=== PATIENT | male | born 1985 | race African-American/Black ===

== ENCOUNTER 2024-04-17 17:41 | Inpatient (IN) | payer OTHER ==
[2024-04-17 18:13] VITALS: BMI 22.8
[2024-04-17] MEDS ORDERED: ONDANSETRON *ODT* 4 MG TABLET SL PRN (18:42)
[2024-04-17] MEDS ORDERED: POLYETHYLENE GLYCOL (HEALTHYLAX) 3350 17 GM PACKET PO PRN (18:42)
[2024-04-17] MEDS ORDERED: LOPERAMIDE HCL 2 MG CAPSULE PO PRN (18:42)
[2024-04-17] MEDS ORDERED: IBUPROFEN 400 MG TABLET (FP) PO PRN (18:42)
[2024-04-17] MEDS ORDERED: DICYCLOMINE HCL 10 MG CAPSULE PO PRN (18:42)
[2024-04-17] MEDS ORDERED: MAG HYDROX/AL HYDROX/SIMETH 30 ML UNIT-DOSE CUP PO PRN (18:42)
[2024-04-17] MEDS ORDERED: BISMUTH SUBSALICYLATE 524 MG/30 ML PO PRN (18:42)
[2024-04-17] MEDS ORDERED: NALOXONE (NARCAN) HCL 4 MG/0.1 ML SPRAY NS PRN (18:42)
[2024-04-17] MEDS ORDERED: guaiFENesin 600 MG TABLET.ER (FP) PO PRN (18:42)
[2024-04-17] MEDS ORDERED: BENZONATATE 200 MG CAPSULE PO PRN (18:42)
[2024-04-17] MEDS ORDERED: MELATONIN 5 MG TABLETS PO SCH (22:00)
[2024-04-17] MEDS: hydrOXYzine PAMOATE 25 MG CAPSULE (FP) PO PRN (22:36)
[2024-04-17] MEDS: MELATONIN 5 MG TABLETS PO SCH (22:36)
[2024-04-17] MEDS: METHOCARBAMOL 500 MG TABLET PO PRN (22:36)
[2024-04-17] MEDS: THIAMINE 100 MG TABLET PO SCH (22:36)
[2024-04-18] MEDS ORDERED: chlordiazePOXIDE HCL 25 MG CAPSULE PO PRN (09:36)
[2024-04-18] MEDS: PRENATAL VITAMINS W/ FOLIC ACID TABLET (FP) PO SCH (10:14)
[2024-04-18] MEDS: chlordiazePOXIDE HCL 25 MG CAPSULE PO SCH (10:43)
[2024-04-18 12:53] LABS: CHLORIDE 106 mmol/L (98-107); SODIUM 141 mmol/L (136-145)
[2024-04-18 12:54] LABS: HEMATOCRIT 43.6 % (35.4-49); HEMOGLOBIN 14.2 GM/dL (11.7-16.9); MCH 31.7 pg (25.7-33.7); MCHC 32.4 g/dl (32.0-35.9); MEAN CELL VOLUME 97.8 fl (80-96); MEAN PLT VOLUME 7.4 fl (7.5-11.1); PLATELET COUNT 322 10^3/uL (134-434); RBC 4.46 M/mm3 (4.00-5.60); RDW 13.4 % (11.9-15.9); WHITE BLOOD COUNT 6.4 K/mm3 (4.0-10.0)
[2024-04-18 12:57] LABS: CALCIUM 9.1 mg/dL (8.5-10.1)
[2024-04-18 12:58] LABS: ALBUMIN 3.2 g/dl (3.4-5.0); ANION GAP 5 mmol/L (4-13); BLOOD UREA NITROGEN 13.3 mg/dL (7-18); CO2 30 mmol/L (21-32); GLUCOSE,RANDOM 89 mg/dL (74-106)
[2024-04-18 13:01] LABS: SGOT/AST 14 U/L (15-37); SGPT/ALT 17 U/L (13-61)
[2024-04-18 13:02] LABS: BILIRUBIN,TOTAL 0.5 mg/dL (0.2-1); CREATININE 0.7 mg/dL (0.55-1.3); TOT PROT 6.3 g/dl (6.4-8.2)
[2024-04-18 13:04] LABS: ALK PHOS 55 U/L (45-117)
[2024-04-19] MEDS: NICOTINE POLACRILEX 2 MG GUM BUC PRN (17:54)
[2024-04-19] MEDS: IBUPROFEN 600 MG TABLET (FP) PO PRN (23:03)
[2024-04-20] MEDS: chlordiazePOXIDE HCL 25 MG CAPSULE PO SCH (06:00)
[2024-04-20] MEDS: NICOTINE POLACRILEX 4 MG GUM BUC PRN (19:47)
[2024-04-21] MEDS: chlordiazePOXIDE HCL 10 MG CAPSULE PO SCH (05:37)
[2024-04-21] MEDS: chlordiazePOXIDE HCL 10 MG CAPSULE PO PRN (07:31)
[2024-04-21] MEDS: cloNIDine HCL 0.1 MG TABLET PO STA (14:04)
[2024-04-21] MEDS: LISINOPRIL 10 MG TABLET PO SCH (15:50)
[2024-04-21] MEDS: ACETAMINOPHEN 325 MG TABLET (FP) PO PRN (23:02)
[2024-04-21] MEDS: MAGNESIUM HYDROX 2400MG/30ML ORAL SUSPENSION 30 ML CUP PO PRN (23:03)
[2024-04-22] MEDS: chlordiazePOXIDE HCL 10 MG CAPSULE PO SCH (05:53)
[2024-04-22] MEDS ORDERED: LISINOPRIL 5 MG TABLET PO SCH (10:00)
[2024-04-22] MEDS: BENZOCAINE/MENTHOL (CHLORASEPTIC ) LOZENGE MM PRN (12:41)
[2024-04-22 17:23] LABS: HEMATOCRIT 41.1 % (35.4-49); HEMOGLOBIN 13.5 GM/dL (11.7-16.9); MCH 31.5 pg (25.7-33.7); MCHC 32.8 g/dl (32.0-35.9); MEAN CELL VOLUME 96.3 fl (80-96); MEAN PLT VOLUME 7.8 fl (7.5-11.1); PLATELET COUNT 261 10^3/uL (134-434); RBC 4.27 M/mm3 (4.00-5.60); RDW 13.3 % (11.9-15.9); WHITE BLOOD COUNT 9.8 K/mm3 (4.0-10.0)
[2024-04-22 19:34] LABS: ALBUMIN 3.7 g/dl (3.4-5.0); CALCIUM 9.6 mg/dL (8.5-10.1)
[2024-04-22 19:35] LABS: POTASSIUM 4.1 mmol/L (3.5-5.1)
[2024-04-22 19:39] LABS: TOT PROT 7.2 g/dl (6.4-8.2)
[2024-04-22 20:01] LABS: BLOOD UREA NITROGEN 13.4 mg/dL (7-18)
[2024-04-22 20:12] LABS: BILIRUBIN,TOTAL 0.3 mg/dL (0.2-1)
[2024-04-22 21:17] VITALS: RESP 16
[2024-04-23] MEDS: chlordiazePOXIDE HCL 10 MG CAPSULE PO ONE (04:01)
[2024-04-23] MEDS: NALOXONE (NYS OPIOID OVERDOSE PROGRAM) 4 MG/0.1 ML SPRAY NS SCH (08:45)
[2024-04-23 09:48] VITALS: BP 108/89; PULSE 94; TEMP 97.7
[2024-04-23 11:12] LABS: PH,URINE 8.5 (5.0-8.0); URINE APPEARANCE CLEAR; URINE BILIRUBIN NEGATIVE (NEGATIVE); URINE COLOR YELLOW; URINE GLUCOSE (UA) NEGATIVE (NEGATIVE); URINE KETONE NEGATIVE (NEGATIVE); URINE LEUK ESTERASE NEGATIVE (NEGATIVE); URINE NITRITE NEGATIVE (NEGATIVE); URINE PROTEIN NEGATIVE (NEGATIVE); URINE UROBILINOGEN 0.2 mg/dL (0.2-1.0)
== END 2024-04-23 11:34 | disposition home or self-care (01) | DRG 774 ==
LOC: YASAS 17:41 → Y3N 19:33
PROVIDERS: ADMIT Allergy & Immunology; ATTEND Surgery
PROC: HZ2ZZZZ Detoxification Services for Substance Abuse Treatment (ICD-10-PCS; principal; 2024-04-17)
DX: F10.230 Alcohol dependence with withdrawal, uncomplicated (principal); F14.20 Cocaine dependence, uncomplicated; F12.20 Cannabis dependence, uncomplicated; F17.210 Nicotine dependence, cigarettes, uncomplicated; F19.24 Other psychoactive substance dependence with psychoactive substance-induced mood disorder; G47.00 Insomnia, unspecified; K21.9 Gastro-esophageal reflux disease without esophagitis; Z87.01 Personal history of pneumonia (recurrent); Z56.0 Unemployment, unspecified; Z59.00 Homelessness unspecified
CPT/HCPCS: 0241U-QW; 36415; 80053; 80307; 81003; 85025; 85027; 86780; 93005; 93010